=== PATIENT | female | born 1995 | race Caucasian/White ===

== ENCOUNTER 2025-08-02 14:39 | Emergency (ER) | payer OTHER, SELFPAY ==
--- OUTSIDE RECORDS SUMMARY | 2025-06-03 13:45 | XMS_ITS | Encounter Summary ---
Author Organization [place] [address] Care Team Providers Care [employer] Maintenance Worker Name Role Phone Liz Silvestre MD Unavailable [phone] Efe Willard MD Primary Care Provider [phone] Encounter Details Date Type Department Care Team (Latest Contact Info) Description 06/03/2025 1:45 PM EDT - 06/03/2025 11:59 PM EDT Hospital Encounter [facility] [address] [place] [phone] Hyperglycemia; Dizziness; Menopausal syndrome Discharge Disposition: Home or Self Care Social History Tobacco Use Types Packs/Day Years Used Date Smoking Tobacco: Never Smokeless Tobacco: Never Alcohol Use Standard Drinks/Week Comments No 0 (1 standard drink = 0.6 oz pur e alcohol) none with PHQ-2 Answer Date Recorded PHQ-2 Total Score 0 02/09/2024 Sexually Active Control Partners Comments Yes Male Comments No Sex and Gender Information Value Date Recorded Sex Assigned at Not on file Legal Sex Female 8:58 PM EDT Gender Identity Not on file Sexual Orientation Not on file 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 Answer Date of Assessment Author No 02/12/2024 9:43 AM Dale Amador RN * Is the person blind or does he/she have serious difficulty seeing even when wearing glasses? Answer Date of Assessment Author No 02/12/2024 9:43 AM Dale Amador RN * Does this person have serious difficulty walking or climbing stairs? Answer Date of Assessment Author No 02/12/2024 9:43 AM Dale Amador RN * Does this person have difficulty dressing or bathing? Answer Date of Assessment Author No 02/12/2024 9:43 AM Dale Amador RN * Because of a physical, mental or emotional condition, does this person have difficulty doing errands alone such as visiting a doctor's office or shopping? Answer Date of Assessment Author No 02/12/2024 9:43 AM Columba Amador RN documented as of this encounter Mental Status * Because of a physical, mental or emotional condition, does this person have serious difficulty concentrating, remembering or making decisions? Answer Entry Date Author No 02/12/2024 9:43 AM Dale Amador RN documented in this encounter Medications at Time of Discharge escitalopram oxalate (LEXAPRO) 10 mg Oral TabletIndications :Irritability,Gerber or depressive disorder, recurrent episode, mild Take 1 Tablet by mouth daily. 90 Tablet 1 12/09/2024 06/09/2025 documented as of this encounter Discharge Disposition Disposition Code Departure Means Destination Home or Self Care documented in this encounter Plan of Treatment Not on file documented as of this encounter Goals Goal Patient Goal Type Associated Problems Recent Progress Patient-Stated? Author Blood Pressure < 140/90 Blood Pressure 120/80(2023 4:15 PM EST) No Christine Giordano RN Eat better, exercise, reach an ideal body weight General No Joyce Pickens LPN BMI (Calculated) < 30 General 47.2(11/01/20 24 4:15 PM EST) Christine Alcantara RN HEMOGLOBIN A1C < 7.0 Result Component 5.8( 1:45 PM EDT) No Christine Giordano RN documented as of this encounter Procedures Procedure Name Priority Date/Time Associated Diagnosis Comments ESTROGENS, FRACTIONATED BY TMS -REF LAB Routine 06/03/2025 1:45 PM EDT Menopausal syndrome THYROID STIMULATING HORMONE Routine 06/03/2025 1:45 PM EDT Hyperglycemia Dizziness T4, FREE (THYROXINE) Routine 06/03/2025 1:45 PM EDT Hyperglycemia Dizziness HEMOGLOBIN A1C Routine 06/03/2025 1:45 PM EDT Hyperglycemia LUTEINIZING HORMONE Routine 06/03/2025 1 :45 PM EDT Menopausal syndrome FOLLICLE STIMULATING HORMONE LEVEL Routine 06/03/2025 1:45 PM EDT Menopausal syndrome COMPREHENSIVE METABOLIC PANEL Routine 06/03/2025 1:45 PM EDT Hyperglycemia documented in this encounter Results * (ABNORMAL) COMPREHENSIVE METABOLIC PANEL (06/03/2025 1:45 PM EDT) Sodium 137 136 - 145 mmol/L 06/03/2025 7:57 PM EDT [facility] Potassium 4.4 3.5 - 5.0 mmol/L 06/03/2025 7:57 PM EDT [facility] Chloride 103 98 - 107 mmol/L 06/03/2025 7:57 PM EDT [facility] Total CO2 24 22 - 29 mmol/L 06/03/2025 7:57 PM EDT [facility] Anion Gap 10 7 - 16 mmol/L 06/03/2025 7:57 PM EDT [facility] Calcium 9.5 8.6 - 10.4 mg/dL 06/03/2025 7:57 PM EDT [facility] Glucose Lvl 103(H) 70 - 99 mg/dL 06/03/2025 7:57 PM EDT [facility] BUN 16 6 - 20 mg/dL 06/03/2025 7:57 PM EDT [facility] Creatinine 0.72 0.51 - 1.30 mg/dL 06/03/2025 7:57 PM EDT [facility] Albumin 4.2 3.5 - 5.2 gm/dL 06/03/2025 7:57 PM EDT [facility], [facility] Total Protein 7.0 6.4 - 8.3 gm/dL 06/03/2025 7:57 PM EDT [facility] Bili Total 0.8 0.2 - 1.3 mg/dL 06/03/2025 7:57 PM EDT [facility] ALT 27 <=41 U/L 06/03/2025 7:57 PM EDT [facility] AST 23 <=40 U/L 06/03/2025 7:57 PM EDT [facility] Alk Phos 103 36 - 123 U/L 06/03/2025 7:57 PM EDT [facility], [facility] eGFR (CKD-EPIcr 2020) 114 >=60 mL/min/1.7 3 m2 06/03/2025 7:57 PM EDT [facility] Comment:Estimated GFR was ca lculated using the CKD-EPIcr (2020) equation refit without race. The equation is recommended by the National Kidney Foundation - [place] Society of Nephrology Task Force. Blood VENOUS BLOOD / Unknown Venipuncture / Unknown 06/03/2025 1:45 PM EDT 06/03/2025 1:45 PM EDT us Efe Willard MD CHEMISTRY ORDERABLES Final Res ult [facility] [address] [facility] , [address] [place] [id number] * ESTROGENS, FRACTIONATED BY TMS -REF LAB (06/03/2025 1:45 PM EDT) Estradiol 49.4 pg/mL 06/07/2025 4:00 AM EDT [employer] [facility] Comment: REFERENCE INTERVAL: Estradiol by [employer] Care[employer] Instructor For a complete set of all established reference intervals, refer to ltd.ComH[employer]/Tests/Pub/[id number]. This test was developed and its performance characteristics determined by [facility]. It has not been cleared or approved by the US Food and Drug Administration. This test was performed in a CLIA certified laboratory and is intended for clinical purposes. Estrone by 34.6 pg/mL 06/07/2025 4:00 AM EDT [facility] Comment: INTERPRETIVE INFORMATION: Estrone by Health Care[employer] Instructor For a complete set of all established reference intervals, refer to [employer]/Tests/Pub/[id number]. This test was developed and its performance characteristics determined by [facility] [facility] [employer]. It has not been cleared or approved by the US Food and Drug Administration. This test was performed in a CLIA certified laboratory and is intended for clinical purposes. Estrogens Total 84.0 pg/mL 4:00 AM EDT [facility] Comment: Reference interval of estrogens (pg/mL) Estrone Estradiol Total Estrogens Early follicular <150.0 30.0-100.0 30.0-250.0 Late follicular 100.0-250.0 100.0-400.0 200.0-650.0 Luteal <200.0 50.0-150.0 50.0-350.0 Post-menopausal 3.0-32.0 2.0-21.0 5.0-52.0 REFERENCE INTERVAL: Estrogens Total Calculation For a complete set of all established reference intervals, refer to [employer]/Tests/Pub/[id number]. Performed By: [facility] [address] [place] [id number] Hide Sorter: Deshawn Werner MD, PhD CLIA Number: [id number] Blood VENOUS BLOOD / Unknown Venipuncture / Unknown 06/03/2025 1:45 PM EDT 06/03/2025 1:45 PM EDT us Efe Willard MD CHEMISTRY ORDERABLES Final Res ult [facility] [address] [place], [place] [id number] * FOLLICLE STIMULATING HORMONE LEVEL (06/03/2025 1:45 PM EDT) FSH 5.22 mIU/mL 06/03/2025 7:58 PM EDT [employer] Comment: Suggested Reference Range (mIU/mL) Females Follicular Phase 3.5 - 12.5 Ovulation Phase 4.7 - 21.5 Luteal Phase 1.7 - 7.7 Postmenopause 25.8 - 134.8 Males 1.5 - 12.4 Blood VENOUS BLOOD / Unknown Venipuncture / Unknown 06/03/2025 1:45 PM EDT 06/03/2025 1:45 PM EDT Narrative [facility] [employer] [facility] - 06/03/2025 7:58 PM EDT Ingestion of alanna doses of biotin (>5 mg/day) taken within 8 hours of drawing blood sample can interfere with this immunoassay test. Efe Willard MD CHEMISTRY ORDERABLES Final Res ult Performing Organization Address [facility] Co de Phone Number [facility] [employer] [address] , [place] [address] * LUTEINIZING HORMONE (06/03/2025 1:45 PM EDT) Pathologist [facility] LH 3.40 mIU/mL 06/03/2025 7:58 PM EDT [facility] [employer] [facility] Comment: Suggested Reference Ranges (mIU/mL) Females Follicular Phase 2.4 - 12.6 Ovulation Phase 14.0 - 95.6 Luteal Phase 1.0 - 11.4 Postmenopause 7.7 - 58.5 Males 1.7 - 8.6 Blood VENOUS BLOOD / Unknown Venipuncture / Unknown 06/03/2025 1:45 PM EDT 06/03/2025 1:45 PM EDT Narrative [facility] [employer] [facility] - 06/03/2025 7:58 PM EDT Ingestion of alanna doses of biotin (>5 mg/day) taken within 8 hours of drawing blood sample can interfere with this immunoassay test. Efe Willard MD CHEMISTRY ORDERABLES Final Res ult Performing Organization Address [facility] de Phone Number [facility] [employer] , [place] [address] * T4, FREE (THYROXINE) (06/03/2025 1:45 PM EDT) Free T4 1.09 0.80 - 1.80 ng/dL 06/03/2025 7:57 PM EDT [facility] Blood VENOUS BLOOD / Unknown Venipuncture / Unknown 06/03/2025 1:45 PM EDT 06/03/2025 1:45 PM EDT Narrative [facility] [employer] [facility] - 06/03/2025 7:57 PM EDT Ingestion of alanna doses of biotin (>5 mg/day) taken within 8 hours of drawing blood sample can interfere with this immunoassay test. Efe Willard MD CHEMISTRY ORDERABLES Final Res ult Performing Organization Address [facility] de Phone Number [facility] [employer] [address] , [place] [address] * THYROID STIMULATING HORMONE (06/03/2025 1:45 PM EDT) [facility] TSH 1.460 0.270 - 4.200 mcIU/mL 06/03/2025 7:57 PM ED[address] [facility] [employer] [facility] Blood VENOUS BLOOD / Unknown Venipuncture / Unknown 06/03/2025 1:45 PM EDT 06/03/2025 1:45 PM EDT Narrative [facility] [employer] [facility] - 06/03/2025 7:57 PM EDT Ingestion of alanna doses of biotin (>5 mg/day) taken within 8 hours of drawing blood sample can interfere with this immunoassay test. Efe Willard MD CHEMISTRY ORDERABLES Final Res ult Performing Organization Address [facility] Co de Phone Number [facility] [employer] , [place] [address] * (ABNORMAL) HEMOGLOBIN A1C (06/03/2025 1:45 PM EDT) [facility] Hgb A1C 5.8(H) 4.2 - 5.6 % 06/03/2025 7:[address] [facility] [employer] [facility] Est. Avg Glucose 120 mg/dL 06/03/2025 7:[address] [facility] [employer] Blood VENOUS BLOOD / Unknown Venipuncture / Unknown 06/03/2025 1:45 PM EDT 06/03/2025 1:45 PM EDT Narrative [facility] [employer] - 06/03/2025 7:22 PM EDT REFERENCE RANGE: Normal: 4.0-5.6% Pre-diabetes: 5.7-6.4% Provisional diagnosis of diabetes: >6.4% Hgb F>10% and anything which shortens red cell survival, such as hemolytic anemia, or unstable hemoglobin variants such as HbSS, HbSC, or HbCC, will lower the HbA1c value associated with a given level of glycemic control. us Efe Willard MD CHEMISTRY ORDERABLES Final Res ult [employer] [address] [facility], [address] [place] [id number] documented in this encounter Visit Diagnoses Diagnosis Hyperglycemia Other abnormal glucose Dizziness Dizziness and giddiness Menopausal syndrome Symptomatic menopausal or female climacteric states documented in this encounter Care Teams [employer] Maintenance Worker Relationship Specialty Start Date End Date Efe Willard MD [facility] [phone] PCP - General Internal Medicine 02/21/19 Liz Silvestre MD [address] [facility] [address] [place] [address] [employer] Installer Family Medicine 07/13/17 documented as of this encounter
--- NOTE | 2025-08-02 14:48 | XR_ITS ---
PROCEDURE INFORMATION: Exam: XR Left Ankle Exam date and time: 08/02/2025 2:49 PM Age: 30 years old Clinical indication: Pain; Ankle; Bilateral; Additional info: Left ankle pain, rolled ankle TECHNIQUE: Imaging protocol: Radiologic exam of the left ankle. Views: 3 or more views. COMPARISON: No relevant prior studies available. FINDINGS: Bones/joints: Normal. Soft tissues: Normal. IMPRESSION: No acute findings.
--- NOTE | 2025-08-02 14:49 | HMH.EDGENADL ---
Discharge Plan Disposition Patient Disposition: Home, Self-Care Condition: Good Referrals Follow up/Referrals: Gui Roland DO [Staff Physician, Orthopedics] - See instructions Provider,Referral, [Referring, Medical] - See instructions Activity Restrictions/Add. Instructions Additional Instructions/Restrictions: Please take Tylenol and ibuprofen at home as needed for pain. Please keep ankle wrapped and use crutches as needed for pain. Please ice daily. Please elevate daily. Please follow-up with orthopedic surgery. Clinical Impressions Clinical Impression: Ankle sprain and strain Instructions Patient Instructions: DI for Ankle Sprain Print Language Print Language: Chilean Discharge ED Provider: Max Hyde JR General Adult HPI General Chief complaint: Extremity Injury, Lower Stated complaint: AO @ 1300 08/02/25 Left Ankle, Pain, Swelling Time Seen by Provider: 08/02/25 14:44 Mode of Arrival: Ambulatory Source of Information: Patient Limitations: No Limitations History of Present Illness HPI narrative: This is a 30-year-old female with unremarkable past medical history, no medications, no allergies, no blood thinners, presenting an hour after rolling her left ankle while walking and accidentally walking into a ditch. Patient did not fall or hit her head. Patient complains of left ankle pain and swelling. Able to ambulate with difficulty afterwards. Did not hit her head or lose consciousness. No other complaints or injuries noted. No further complaints this time. Severity: mild Quality: aching Consistency: constant Relieving factors: rest Treatments prior to arrival: NSAID Related Data Allergies Allergy/AdvReac Type Severity Reaction Status Date / Time amoxicillin Allergy Rash Verified 08/02/25 14:56 [facility] Disclaimer: The information contained in this section may have been updated after the patient was seen, as this information can be updated by other users. Social History Smoking Status: Never smoker alcohol intake: never current occupational status: employed Travel in the last 8 weeks?: None ROS Obtained: Yes All systems reviewed & no additional complaints except as documented Constitutional Constitutional: Reports system reviewed and no additional complaints, except as documented Eyes Eyes: Reports system reviewed and no additional complaints, except as documented ENT Ears, Nose, Mouth, and Throat: Reports system reviewed and no additional complaints, except as documented Cardiovascular Cardiovascular: Reports system reviewed and no additional complaints, except as documented Respiratory Respiratory: Reports system reviewed and no additional complaints, except as documented Gastrointestinal Gastrointestingal: Reports system reviewed and no additional complaints, except as documented Genitourinary Female Genitourinary: Reports system reviewed and no additional complaints, except as documented Musculoskeletal Musculoskeletal: Reports as per HPI (Tenderness to palpation to left lateral malleolus) and Reports other (Decreased range of motion secondary to pain and swelling to left ankle) Neurologic Neurologic: Reports system reviewed and no additional complaints, except as documented Physical Exam General General appearance: alert and in no apparent distress Head Head exam: atraumatic and normocephalic Eye Eye exam: Present normal appearance and PERRL ENT ENT exam: Present normal exam Neck Neck exam: Present normal inspection Chest Chest inspection: Present normal inspection Respiratory Respiratory exam: Present normal lung sounds bilaterally Cardiovascular Cardiovascular exam: Present regular rate Abdominal Exam Abdominal exam: Present soft Extremities Exam Extremities exam: Present tenderness, edema and other (Left lateral malleolus tenderness, swelling, decreased range of motion to left ankle) Back Exam Back exam: Present normal inspection Neurological Exam Neurological exam: Present alert and oriented X3 Medical Decision Making Medical Records Screening: Per USPSTF and CDC recommendations, given the prevalence of disease in our region, it is our hospital?s policy to screen for HIV and viral Hepatitis for all patients aged 18 and over and those with ongoing risk factors. Zachary Inquiry Pt receiving controlled substance: No Vital Signs: 08/02/25 14:52 Temperature 98 F Temperature Source Oral Pulse Rate [Right Brachial] 83 Respiratory Rate 16 Blood Pressure [Right Arm] 144/95 H Blood Pressure Mean [Right Arm] 111 Blood Pressure Source [Right Arm] Automatic Cuff Blood Pressure Position [Right Arm] Sitting 02 Sat by Pulse Oximetry 97 Oxygen Delivery Method Room Air Orders (Tests/Meds): ED MEDICATIONS Discontinued Medications Generic Name Dose Route Start Last Admin Trade Name Freq PRN Reason Stop Dose Admin Acetaminophen 1,000 mg 08/02/25 14:48 08/02/25 15:12 Acetaminophen 500mg Tab PO 08/02/25 14:49 1,000 mg ONCE ONE Administration ORDERS Category Date Time Status XR ankle LT min 3V Stat Exams 08/02/25 14:48 Taken Medical Decision Narrative: 30-year-old female presenting for left ankle injury. No medical history. No blood thinners. Initial differential includes ankle sprain versus tibia fracture versus fibular fracture versus foot fracture. We will order x-ray to further evaluate. Already took ibuprofen. We will order Tylenol for pain. Left ankle x-ray reviewed and independent interpreted, significant for no acute fracture or dislocation. Please see radiology report for further details. Will send patient home with [place] wrap, crutches and referral to orthopedic surgery/sports medicine. Will instruct patient to take Tylenol and ibuprofen at home as needed for pain. Patient has remained afebrile, hemodynamically stable, in no acute distress throughout the course of ED stay. Critical Care Critical Care Time Critical Care Time: No
[2025-08-02 14:52] VITALS: BP 144/95; PULSE 83; RESP 16; TEMP 36.6; O2SAT 97; BMI 43.0
[2025-08-02] MEDS: ACETAMINOPHEN 500MG TAB 1000 MG PO (15:12)
--- OUTSIDE RECORDS SUMMARY | 2025-08-02 15:29 | XMS_ITS | Encounter Summary ---
Author Organization [facility] Address [address] [place] [address] Care Team Providers Care Stone Trimmer Name Role Phone Cathleen Gloria MD Primary Care Provider [phone] Reason for Visit * Reason Onset Date Comments Results 10/18/2015 Increasing beta HCGs - reassuring Encounter Details Date Type Department Care Team (Late st Contact Info) Description 10/18/2015 Telephone [facility] Physicians - Primary Care, [facility] [address] [place] [address] Karina Cortez, [employer] [employer], [facility] [address] [facility] [address] [place] [address] Results (Increasing beta HCGs - reassuring) Social History Tobacco Use Types Packs/Day Years Used Date Smoking Tobacco: Never Alcohol Use Standard Drinks/Week Comments Not Asked 0 (1 standard drink = 0.6 oz pur e alcohol) Comments Yes Sex and Gender Information Value Date Recorded Sex Assigned at Not on file Legal Sex Female 10:41 AM EDT Gender Identity Not on file Sexual Orientation Not on file documented as of this encounter Miscellaneous Notes * Telephone Encounter - Sakina Farnsworth - 10/19/2015 11:19 AM EST Notified pt. * Telephone Encounter - Karina Cortez - 10/18/2015 8:58 PM EST Please call pt - her hormone levels (HCG) continue to improve normally. Very reassuring. I will see her this week for an ultrasound. documented in this encounter Plan of Treatment Not on file documented as of this encounter Visit Diagnoses Not on filedocumented in this encounter Care Teams Stone Trimmer Relationship Specialty Start Date End Date Cathleen Gloria MD [address] [place] [address] [place] [phone] PCP - General Internal Medicine 10/13/15 documented as of this encounter
--- OUTSIDE RECORDS SUMMARY | 2025-08-02 15:29 | XMS_ITS | Encounter Summary ---
Author Organization [place] [address] Care Team Providers Care Charge Gang Weigher Name Role Phone Liz Silvestre MD Unavailable [phone] Efe Willard MD Primary Care Provider [phone] Encounter Details Date Type Department Care Team (Late st Contact Info) Description 06/09/2025 Results Follow-Up SEP Barb SOW [address] [place] [phone] Efe Willard MD [address] [place] [phone] HEMOGLOBIN A1C, THYROID STIMULATING HORMONE, T4, FREE (THYROXINE), Additional followed-up results: 4 Social History Tobacco Use Types Packs/Day Years [...] 02/12/2024 9:43 AM Dale Amador RN documented as of this encounter Mental Status * Because of a physical, mental or emotional condition, does this person have serious difficulty concentrating, remembering or making decisions? Answer Entry Date Author No 02/12/2024 9:43 AM Dale Amador RN documented in this encounter Progress Notes * Efe Willard MD - 06/09/2025 12:43 PM EDT Estrogen levels normal. documented in this encounter Plan of Treatment Not on file documented as of this encounter Goals Goal Patient Goal Type Associated Problems Recent Progress Patient-Stated? Author Blood Pressure < 140/90 Blood Pressure 120/80(2023 4:15 PM EST) No Christine Giordano, SARAH Eat better, exercise, reach an ideal body weight General No Joyce Pickens LPN BMI (Calculated) < 30 General 47.2(11/01/20 4:15 PM EST) No Christine Giordano, SARAH HEMOGLOBIN A1C < 7.0 Result Component 5.8( 1:45 PM EDT) Christine Alcantara, RN documented as of this encounter Visit Diagnoses Not on filedocumented in this encounter Care Teams Charge Gang Weigher Relationship Specialty Start Date End Date Efe Willard MD [address] [place] [address] [place] [address] PCP - General Internal Medicine 02/21/19 Liz Silvestre MD [address] [place] [phone] [facility] Family Medicine 07/13/17 documented as of this encounter
--- OUTSIDE RECORDS SUMMARY | 2025-08-02 15:29 | XMS_ITS | Encounter Summary ---
Author Organization [facility] Address [address] [place] [address] Care Team Providers Care Comfort Advisor Name Role Phone Cathleen Gloria MD Primary Care Provider [phone] Reason for Visit * Reason Onset Date Comments Scheduling 06/11/2016 Need for appoint ment s/p , uncomplicated, 9ln 9 oz male . Encounter Details Date Type Department Care Team (Late st Contact Info) Description 06/11/2016 Telephone Labor and Delivery [address] [place] [address] [id number] Karina Cortez, [place] [address] [facility] [address] [place] [address] Scheduling (Need for appointment s/p , uncomplicated, 9ln 9 oz male . ) Social History Tobacco Use Types Packs/Day Years [...] on file documented as of this encounter Functional Status * Are you blind or do you have difficulty seeing, even when wearing glasses? Answer Date of Assessment Author No 06/10/2016 5:56 AM EDT Botello RN * Do you have serious difficulty walking or climbing stairs? Answer Date of Assessment Author No 06/10/2016 5:56 AM EDT Botello RN * Do you have difficulty dressing or bathing? Answer Date of Assessment Author No 06/10/2016 5:56 AM ANA LILIAT Botello RN * Because of a physical, mental, or emotional condition, do you have difficulty doing errands alone such as a visiting a doctor's office or shopping? Answer Date of Assessment Author No 06/10/2016 5:56 AM ANA LILIAT Botello RN documented as of this encounter Mental Status * Because of a physical, mental, or emotional condition, do you have serious difficulty concentrating, remembering, or making decisions? Answer Entry Date Author No 06/10/2016 5:56 AM Gerrado RN documented in this encounter Miscellaneous Notes * Telephone Encounter - Karina Cortez - 06/11/2016 2:17 PM EDT Please contact pt to schedule her 6 weeks post- appointment with me. Of note, she also needs to schedule a circumcision in about 1 week (less is OK) with Dr Rivas or someone in procedure clinic. Thank you! documented in this encounter Plan of Treatment Not on file documented as of this encounter Visit Diagnoses Not on filedocumented in this encounter Care Teams Comfort Advisor Relationship Specialty Start Date End Date Cathleen Gloria MD [address] [place] [address] J[place] EL[place]AB[place] [phone] PCP - General Internal Medicine 10/13/15 documented as of this encounter
--- OUTSIDE RECORDS SUMMARY | 2025-08-02 15:29 | XMS_ITS | Clinical Summary ---
Author Organization [facility] Address [address] [place] [id number] Care Team Providers Care Tourist Agent Name Role Phone Cathleen Gloria MD Primary Care Provider [phone] Allergies No known active allergies Medications VIT/IRON FUMARATE/FA ( PO) Take by mouth. A ctive Cholecalciferol , Vitamin D3, (VITAMIN D) 1,000 unit Capsule Take 1 Cap by mouth daily. 30 Cap 2 5 Active ibuprofen (MOTRIN) 600 mg tablet Take 1 Tab by mouth every 6 hours. 60 Tab 0 6 Active oxyCODONE-aceta minophen (PERCOCET) 5-325 mg per tablet Take 1-2 Tabs by mouth every 4 hours as needed. 30 Tab 0 6 Active Additional Information Patient not taking.Reported on 06/13/2016 [place] Corrigan (MYRTLECKS) 50 % Pads, Medicated Apply to perineum 4 times daily 0 6 Active ferrous sulfate 325 mg (65 mg iron) EC tablet Take 1 Tab by mouth 2 times daily. 60 Tab 1 6 Active Active Problems Problem Noted Date Diagnosed Date Iron deficiency anemia 06/11/2016 Overview (06/11/2016): Hgb 9. at admit to hospital with . High iron diet and begin ferrous sulfate 325 mg BID until PP check up. 06/10/2016 Obesity affecting in third trimester, antepartum 04/17/2016 Overview (06/08/2016): Pregravid BMI was 36. Precautions discussed with pt for FM, HTN. Given BMI of 40 at last visit was scheduled to start NST/KRISSY. First done 06/01/2016. NST reassuring. KRISSY with fluid >10. Will repeat in 1 week 06/08/2016: NST reassuring. KRISSY History of hemorr gregoria, currently , third trimester 04/06/2016 Overview (06/08/2016): G1 - PP hemorh. Hgb about 5 - 2 units transfused. G 2 - no problems. 06/08/2016 Is ok with blood transfusion if needed Overweight 02/24/2016 Overview (02/24/2016): See other problem notes- pt counseled on nutritino, wt gain in preg. If BMI exceeds 40, consider weekly AP surveillance. Maternal varicella, non-immune 12/28/2015 History of shoulder dystocia in prior , currently , third trimester 12/16/2015 Overview (06/08/2016): IOL, mild shoulders ( a few seconds ) Hx PPHx - transfused with 2 units blood. G2 had no complications, IOL slowly elevating BPs. . Discussed stats on low but possible risk of recurrence, wt gain, nutrition, low glycemic foods, exercise. 8/9 . No involvement of brachial nerve or any injury. Discussed with Dr Hernández - no need for consult with him. 06/08/2016: discussed with patient. Plan for IOL at 41+4 Records reviewed from [facility] : Provider Progress Note - Erna Méndez MD - 11/06/2012 9:40 PM EST Delivery Note over RML Loose nuchal and L shoulder requiring suprapubic 8#12 oz 7/9 apgars Placenta spon and intact Uterine exp negative Repair with 2-0 and 3-0 vicryl EBL 600cc Vitamin D insufficiency 11/23/2015 Overview (03/16/2016): Start 1,000 units'day supplemental capsule of Vit D. Re-check level end of Nov 2015 to mid-dec 2015 - rechecked on 03/16/16 Supervision of other normal , antepartu m 11/18/2015 Overview (06/08/2016): First visit 6 weeks. LMP 08-24-15. LORIN 05-30-2016 Hx shoulders and PPH as G1. No prob G2. Desires unmedicated and to avoid IOL if possible. Declines PP contraceptions - discussed 04-06-16. Taking [facility] classes Sisters are now OB pt's with Fam [facility] as well. Refuses vaccines. Declined all aneuploidy screening after counseling. US done 12/25, normal anatomy, male, anterior placenta, normal CL 06/01/2016- continues to prefer avoiding induction if possible. Declined cervical check 06/08/2016- cervical check 3/thick/floating with striping membranes. Plan for IOL on 06/10/16 AT 5am. Baby boy William To [facility] Wants circumcision for son at 8 days of life Optic neuritis 11/18/2015 Overview (11/18/2015): Referred to [facility]. Has appt Oct 2015. Resolved Problems Problem Noted Date Diagnosed Date Resolved Date Optic neuritis 12/04/2015 06/11/2016 Threatened in early 10/23/2015 02/24/2016 Overview (10/23/2015): Spotting, cramping at 6 weeks - QHCG not doubled, interval HCG rising and normal 8 weeks U/S scan. Social History Tobacco Use Types Packs/Day Years Used Date Smoking Tobacco: Never Tobacco Cessation:Counseling Given: Yes Alcohol Use Standard Drinks/Week Comments No 0 (1 standard drink = 0.6 oz pur e alcohol) Comments No Sex and Gender Information Value Date Recorded Sex Assigned at Not on file Legal Sex Female 10:41 AM EDT Gender Identity Not on file Sexual Orientation Not on file Last Filed Vital Signs Vital Sign Reading Time Taken Comments Blood Pressure 112/76 06/13/2016 11:10 AM EDT Pulse 92 06/13/2016 11:10 AM EDT Temperature 36.8 C (98.2 F) 06/13/2016 11:10 AM EDT Respiratory Rate 12 06/13/2016 11:10 AM EDT Oxygen Saturation 98% 06/13/2016 11:10 AM EDT Inhaled Oxygen Concentration - - Weight 99.3 kg (219 lb) 06/13/2016 11:10 AM EDT Height 160 cm (5' 3 ) 06/10/2016 5:48 AM EDT Body Mass Index 38.79 06/10/2016 5:48 AM EDT Plan of Treatment Health Maintenance Due Date Last Done Comments Tetanus Vaccination (Every 1 0 Years) 2011 Lipid Screening 2013 Cervical Cancer Screening 2014 Depression Screening 11/27/2024 COVID-19 Vaccine (2023-2 5 season) 2025 Influenza Vaccination (#1) 2025 HPV Vaccine Aged Out No longer eligi ble based on patient's age to complete this topic Insurance [employer] Advance Directives For more information, please contact: [phone] * Full Code (Latest Code Status on File) Date Activated Date Inactivated Comments 06/10/2016 5:47 PM 06/11/2016 10:17 PM * Full Code Date Activated Date Inactivated Comments 06/10/2016 8:47 AM 06/10/2016 5:47 PM * Full Code Date Activated Date Inactivated Comments 06/10/2016 6:31 AM 06/10/2016 8:47 AM Care Teams Tourist Agent Relationship Specialty Start Date End Date Cathleen Gloria MD [address] [place] [address] ELIZABETH WEBB [phone] PCP - General Internal Medicine 10/13/15
--- OUTSIDE RECORDS SUMMARY | 2025-08-02 15:29 | XMS_ITS | Clinical Summary ---
Author Organization [facility] Address [address] [place] [address] Phone Care Team Providers Care Sociology Teacher Name Role Phone Liz Silvestre MD Unavailable [phone] Efe Willard MD Primary Care Provider [phone] Allergies Active Allergy Reactions Criticality Noted Date Comments Amoxicillin Rash 02/24/2017 Medications metoprolol (LOPRESSOR) 50 mg Oral TabletIndications :Essential hypertension Take 1 Tablet by mouth daily for 180 days. 90 Tablet 1 11/01/2024 Active escitalopram oxalate (LEXAPRO) 10 mg Oral TabletIndications :Irritability,Gerber or depressive disorder, recurrent episode, mild TAKE 1 TABLET BY MOUTH DAILY 30 Tablet 06/09/2025 Active Active Problems Problem Noted Date Diagnosed Date S/P primary low transverse 02/10/2024 HTN in , chronic 01/11/2024 Obesity, Class III, BMI 40-49.9 (morbid obesity) 01/04/2022 Overview (01/04/2022): Wt Readings from Last 3 Encounters: 01/04/22 248 lb (112.5 kg) 09/30/21 248 lb (112.5 kg) 09/16/21 248 lb 12.8 oz (112.9 kg) Diet/exercise. Snorings 01/04/2022 Assessment & Plan (01/04/2022 12:27 PM EST): Possible SABAS Has tonsillar hypertrophy - recommend seeing ENT first about tonsils Work on weight loss. Tonsillar hypertrophy 01/04/2022 Irritability 09/16/2021 Iron deficiency anemia 06/11/2016 Overview (07/04/2024): Overview: Hgb 9. at admit to hospital with . High iron diet and begin ferrous sulfate 325 mg BID until PP check up. 06/10/2016 Obesity affecting in third trimester, antepartum 04/17/2016 Overview (07/04/2024): Overview: Pregravid BMI was 36. Precautions discussed with pt for FM, HTN. Given BMI of 40 at last visit was scheduled to start NST/KRISSY. First done 06/01/2016. NST reassuring. KRISSY with fluid >10. Will repeat in 1 week 06/08/2016: NST reassuring. KRISSY History of hemorr gregoria, currently , third trimester 04/06/2016 Overview (07/04/2024): Overview: G1 - PP hemorh. Hgb about 5 - 2 units transfused. G 2 - no problems. 06/08/2016 Is ok with blood transfusion if needed Overweight 02/24/2016 Overview (07/04/2024): Overview: See other problem notes- pt counseled on nutritino, wt gain in preg. If BMI exceeds 40, consider weekly AP surveillance. Maternal varicella, non-immune 12/28/2015 History of shoulder dystocia in prior , currently , third trimester 12/16/2015 Overview (07/04/2024): Overview: IOL, mild shoulders ( a few seconds [...] for IOL at 41+4 Records reviewed from Es : Provider Progress Note - Erna Méndez MD - 11/06/2012 9:40 PM EST Delivery Note over RML Loose nuchal and L shoulder requiring suprapubic 8#12 oz 7/9 apgars Placenta spon and intact Uterine exp negative Repair with 2-0 and 3-0 vicryl EBL 600cc Vitamin D insufficiency 11/23/2015 Overview (07/04/2024): Overview: Start 1,000 units'day supplemental capsule of Vit D. Re-check level end of Nov 2015 to mid-dec 2015 - rechecked on 03/16/16 Optic neuritis 11/18/2015 Overview (07/04/2024): Overview: Referred to [facility]. Has appt Oct 2015. Resolved Problems Problem Noted Date Diagnosed Date Resolved Date 37 weeks gestation of 02/10/2024 02/28/2024 Breech presentation 02/10/2024 02/28/20 24 Nuchal cord, fetus 1 02/10/2024 024 examination or rosemary t, positive result 11/02/2023 02/28/2024 Encounter for supervision of normal , antepartum 08/22/2023 02/28/2024 Overview (08/22/2023): L=8w6d US PNL wnl Failed early GCT, GTT P Grand multiparity 08/22/2023 02/28/2024 Elevated BP without diagnosis of hypertension 01/07/20 21 01/04/2022 Encounter for induction of labor 11/30/2020 01/07/2021 Anemia during in third trimester 11/30/2020 01/07/2021 Group B Streptococcus carmelina r, +RV culture, currently 11/16/2020 01/07/2021 COVID-19 affecting in third trimester 10/14/2020 01/07/2021 Elevated blood pressure reading 02/21/2019 01/07/2021 Assessment & Plan (02/21/2019 10:19 AM EDT): She is reluctant to get the echo at this time secondary to insurance issues. She has very poor insurance with coverage that leads to high deductible. At this point she is monitoring her blood pressure at home 2-3 times per month and it has been running in the 120s-130s systolic. We will continue to monitor for now without any additional testing. Advised her that she has any readings with a systolic above 140 she needs to call us. Normal labor 03/03/2018 01/07/2021 Anemia during 02/08/201803/27 39 weeks gestation of 02/06/2018 01/07/2021 Hx gestational diabetes 11/08/201706/2024 Overview (08/23/2023): Failed early GCT --> 3hr wnl Needs repeat 3hr or QID FSBS in third trimester Anemia complicating 04/05/2017 04/13/2017 Supervision of normal 03/30/2017 04/13/2017 High-risk 01/04/20 22 examination or rosemary t, positive result 01/04/2022 Obesity in 024 Gestational diabetes mellitu s (GDM) controlled on oral hypoglycemic drug, antepartum 201702/06/2018 Encounters Date Type Department Care Team Description 06/09/2025 Results Follow-Up [facility] [address] [place] [address] Efe Willard MD HEMOGLOBIN A1C, THYROID STIMULATING HORMONE, T4, FREE (THYROXINE), Additional followed-up results: 4 06/07/2025 Refill [facility] [address] [place] [address] Efe Willard MD Medication Refill; Central Patient Navigator Outreach (Med Refills 30/) 06/03/2025 1:45 PM EDT - 06/03/2025 11:59 PM EDT Hospital Encounter [facility] [place] [address] [place] [id number] Hyperglycemia; Dizziness; Menopausal syndrome Discharge Disposition: Home or Self Care from Last 3 Months Surgical History Surgery Date Site/Laterality Comments DILATION AND CURETTAGE OF UTERUS 06/25/2013 N/A DILATION & CURETTAGE SUCTION EVACUATION FOR MISCARRIAGE; Surgeon: Gilbert Gonzalez MD; Location: [facility]; Service: Gynecology SECTION 02/10/2024 Abdomen primary section with low transverse uterine incision at 0215; Surgeon: Liz Silvestre MD; Location: [facility]; Service: Gynecology Medical History Medical History Date Comments Encounter for blood transfusion 11/07/2012 Anemia past hx History of miscarriage 2012 & Hypertension PIH 2023 pregnan cy Heartburn with Family History Medical History Relation Name Comments No Known Problems Daughter 1 No Known Problems Daughter 2 High Blood Pressure Father Cancer Maternal Grandfather Arthritis Maternal Grandmother Diabetes Maternal Grandmother No Known Problems Mother No Known Problems Paternal Grandfather Glaucoma Paternal Grandmother No Known Problems Sister 1 No Known Problems Sister 2 No Known Problems Sister 3 No Known Problems Son 1 No Known Problems Son 2 No Known Problems Son 3 Relation Name Status Comments Daughter 1 Alive Daughter 2 Alive Father Alive Maternal Grandfather Maternal Grandmother Alive Mother Alive Paternal Grandfather Paternal Grandmother Sister 1 Alive Sister 2 Alive Sister 3 Alive Son 1 Alive Son 2 Alive Son 3 Alive Social History Tobacco Use Types Packs/Day Years Used Date Smoking Tobacco: Never Smokeless Tobacco: Never Tobacco Cessation:Counseling Given: Not Answered Alcohol Use Standard Drinks/Week Comments No 0 [...] Not on file Not on f ile Obstetrics History Para Term AB IAB SAB Ectopic Multiple Livin g Live Births 8 6 6 0 2 0 1 0 0 6 6 Date Outcome GA Total Labor Labor/2nd/3rd Weight Sex Type Anes PTL Ayana A1 A5 Name Clin 2011 Term 40w 1d 8 lb 12 oz (3.969 kg) F Vag-S pont Epidur al N Livin g [address],[place] GIRL A Ken Culver MD Delivery Location:[facility] 2012 SAB 10w 0d Delivery Location:d&c 2013 Term 40w 0d 8 lb 5.5 oz (3.785 kg) M Vag-S pont Epidur al N Livin g [address],[place] BABY A Jarod Reyna MD Delivery Location:[facility] 2015 Term 41w 4d 9 lb 9 oz (4.338 kg) M Vag-S pont None N Livin g Delivery Location:[facility] 2017 AB 2017 Term 39w 3d 0h 05m 0h 05m 7 lb 12.9 oz (3.54 kg) F Vag-S pont Epidur al N Livin g 8 8 [facility],[place] BABY [facility] Complications:Gestational di abetes Delivery Location:[facility] ([facility] 2020 Term 39w 1d 0h 05m 0h 05m 7 lb 10.4 oz (3.47 kg) M Vag-S pont Epidur al N Livin g 8 9 [facility],[place] BABY [facility] Complications:Obesity,Histor y of COVID-19,GBS (group B Streptococcus carrier), +RV culture, currently Delivery Location:[facility] ([facility]) 2023 Term 37w 2d 0h 01m 0h 01m 6 lb 14.8 oz (3.14 kg) F CSP Epidur al N Livin g [address] [facility] Complications:Chronic hypert ension,Breech delivery,S/P primary low transverse Delivery Location:[facility] ([facility]) Last Filed Vital Signs Vital Sign Reading Time Taken Comments Blood Pressure 120/80 11/01/2024 4:15 PM EST Pulse 68 11/01/2024 4:15 PM EST Temperature 36.4 C (97.6 F) 11/01/2024 4:15 PM EST Respiratory Rate 20 11/01/2024 4:15 PM EST Oxygen Saturation 98% 11/01/2024 4:15 PM EST Inhaled Oxygen Concentration - - Weight 120.7 kg (266 lb) 11/01/2024 4:15 PM EST Height 160 cm (5' 3 ) 11/01/2024 4:15 PM EST Body Mass Index 47.12 11/01/2024 4:15 PM EST Plan of Treatment Health Maintenance Due Date Last Done Comments Annual Wellness Exam 1996 DTaP/TDaP/Td (1 - Tdap) 2012 Hepatitis B Vaccine (1 of 3 - 19+ 3-dose series) 2012 Pap Smear 05/21/2023 05/21/2020, 03/30/2017, 11/11/2014 Cervical Cancer Screening 2023 HPV/Pap Cotest 2023 COVID-19 Vaccine ( - 2023-2 5 season) 2025 Influenza Vaccine (#1) 2025 5 (Declined) Diabetic Eye Exam Discontinued 01/27/2024 Meningococcal B Vaccine Aged Out No l onger eligible based on patient's age to complete this topic Pneumococcal Vaccine 0-49 Aged Out No longer eligible based on patient's age to complete this topic Goals Goal Patient Goal Type Associated Problems Recent Progress Patient-Stated? Author Blood Pressure < 140/90 Blood Pressure 120/80(2023 4:15 PM EST) No Christine Giordano RN Eat better, exercise, reach an ideal body weight General No Joyce Pickens LPN BMI (Calculated) < 30 General 47.2(11/01/20 4:15 PM EST) No Christine Giordano, SARAH HEMOGLOBIN A1C < 7.0 Result Component 5.8( 1:45 PM EDT) No Christine Giordano, integration technician Procedure Name Priority Date/Time Associated Diagnosis Comments COMPREHENSIVE METABOLIC PANEL Routine 06/03/2025 1:45 PM EDT Hyperglycemia ESTROGENS, FRACTIONATED BY TMS -REF LAB Routine 06/03/2025 1:45 PM EDT Menopausal syndrome FOLLICLE STIMULATING HORMONE LEVEL Routine 06/03/2025 1:45 PM EDT Menopausal syndrome LUTEINIZING HORMONE Routine 06/03/2025 1 :45 PM EDT Menopausal syndrome T4, FREE (THYROXINE) Routine 06/03/2025 1:45 PM EDT Hyperglycemia Dizziness THYROID STIMULATING HORMONE Routine 06/03/2025 1:45 PM EDT Hyperglycemia Dizziness HEMOGLOBIN A1C Routine 06/03/2025 1:45 PM EDT Hyperglycemia HM DIABETES EYE EXAM Routine 01/27/2024 10:02 AM EST CRIMPING PRESS OPERATOR CYTOLOGY REQUEST (PAP ONLY) Routine 05/21/2020 8:52 AM EDT examination or test, positive result from Last 3 Months or Most Recently Relevant to Health Maintenance Results * ESTROGENS, FRACTIONATED BY TMS -REF LAB (06/03/2025 1:45 PM EDT) Estradiol 49.4 pg/mL 06/07/2025 4:00 AM EDT [facility] Comment: REFERENCE INTERVAL: Estradiol by Sample Finisher For a complete set of all established reference intervals, refer to [facility]/Tests/Pub/[id number]. This test was developed and its performance characteristics determined by [facility]. It has not been cleared or approved by the US Food and Drug Administration. This test was performed in a CLIA certified laboratory and is intended for clinical purposes. Estrone by 34.6 pg/mL 06/07/2025 4:00 AM EDT [employer] [facility] Comment: INTERPRETIVE INFORMATION: Estrone by Sample Finisher For a complete set of all established reference intervals, refer to [employer]/Tests/Pub/[id number]. This test was developed and its performance characteristics determined by [facility]. It has not been cleared or approved by the US Food and Drug Administration. This test was performed in a CLIA certified laboratory and is intended for clinical purposes. Estrogens Total 84.0 pg/mL 4:00 AM EDT [facility] Comment: Reference interval of estrogens (pg/mL) Estrone Estradiol Total Estrogens Early follicular <150.0 30.0-100.0 30.0-250.0 Late follicular 100.0-250.0 100.0-400.0 200.0-650.0 Luteal <200.0 50.0-150.0 50.0-350.0 Post-menopausal 3.0-32.0 2.0-21.0 5.0-52.0 REFERENCE INTERVAL: Estrogens Total Calculation For a complete set of all established reference intervals, refer to [employer]/Tests/Pub/[id number]. Performed By: [facility] [address] [place] [address] Auctioneer Art: Deshawn Werner MD, PhD CLIA Number: [id number] Blood VENOUS BLOOD / Unknown Venipuncture / Unknown 06/03/2025 1:45 PM EDT 06/03/2025 1:45 PM EDT Efe Willard MD CHEMISTRY ORDERABLES Final Res ult Performing Organization Address [facility]/ZIP Co de Phone Number [facility] [address] [place] [address] * THYROID STIMULATING HORMONE (06/03/2025 1:45 PM EDT) TSH 1.460 0.270 - 4.200 mcIU/mL 06/03/2025 7:57 PM EDT [facility] Blood VENOUS BLOOD / Unknown Venipuncture / Unknown 06/03/2025 1:45 PM EDT 06/03/2025 1:45 PM EDT Narrative [facility] - 06/03/2025 7:57 PM EDT Ingestion of alanna doses of biotin (>5 mg/day) taken within 8 hours of drawing blood sample can interfere with this immunoassay test. Efe Willard MD CHEMISTRY ORDERABLES Final Res ult Performing Organization Address City/[facility]/ZIP Co de Phone Number [facility] [address] [facility] , [place] [address] * T4, FREE (THYROXINE) (06/03/2025 1:45 PM EDT) Pathologist [facility] Free T4 1.09 0.80 - 1.80 ng/dL 06/03/2025 7:57 PM EDT [facility] Blood VENOUS BLOOD / Unknown Venipuncture / Unknown 06/03/2025 1:45 PM EDT 06/03/2025 1:45 PM EDT Narrative [facility] - 06/03/2025 7:57 PM EDT Ingestion of alanna doses of biotin (>5 mg/day) taken within 8 hours of drawing blood sample can interfere with this immunoassay test. Efe Willard MD CHEMISTRY ORDERABLES Final Res ult Performing Organization Address City/[facility]/ZIP Co de Phone Number [facility] [address] [facility] , [place] [address] * (ABNORMAL) HEMOGLOBIN A1C (06/03/2025 1:45 PM EDT) [facility] Hgb A1C 5.8(H) 4.2 - 5.6 % 06/03/2025 7:22 PM EDT [facility] Est. Avg Glucose 120 mg/dL 06/03/2025 7:22 PM EDT [facility] Blood VENOUS BLOOD / Unknown Venipuncture / Unknown 06/03/2025 1:45 PM EDT 06/03/2025 1:45 PM EDT Narrative [facility] - 06/03/2025 7:22 PM EDT REFERENCE RANGE: Normal: 4.0-5.6% Pre-diabetes: 5.7-6.4% Provisional diagnosis of diabetes: >6.4% Hgb F>10% and anything which shortens red cell survival, such as hemolytic anemia, or unstable hemoglobin variants such as HbSS, HbSC, or HbCC, will lower the HbA1c value associated with a given level of glycemic control. Efe Willard MD CHEMISTRY ORDERABLES Final Res ult [facility] [address] [facility] , [place] [address] * LUTEINIZING HORMONE (06/03/2025 1:45 PM EDT) LH 3.40 mIU/mL 06/03/2025 7:58 PM EDT [facility] Comment: Suggested Reference Ranges (mIU/mL) Females Follicular Phase 2.4 - 12.6 Ovulation Phase 14.0 - 95.6 Luteal Phase 1.0 - 11.4 Postmenopause 7.7 - 58.5 Males 1.7 - 8.6 Blood VENOUS BLOOD / Unknown Venipuncture / Unknown 06/03/2025 1:45 PM EDT 06/03/2025 1:45 PM EDT Narrative [facility] - 06/03/2025 7:58 PM EDT Ingestion of alanna doses of biotin (>5 mg/day) taken within 8 hours of drawing blood sample can interfere with this immunoassay test. us Efe Willard MD CHEMISTRY ORDERABLES Final Res ult [facility] [address] [facility] , [place] [address] * FOLLICLE STIMULATING HORMONE LEVEL (06/03/2025 1:45 PM EDT) FSH 5.22 mIU/mL 06/03/2025 7:58 PM EDT [facility] Comment: Suggested Reference Range (mIU/mL) Females Follicular Phase 3.5 - 12.5 Ovulation Phase 4.7 - 21.5 Luteal Phase 1.7 - 7.7 Postmenopause 25.8 - 134.8 Males 1.5 - 12.4 Blood VENOUS BLOOD / Unknown Venipuncture / Unknown 06/03/2025 1:45 PM EDT 06/03/2025 1:45 PM EDT Narrative [facility] - 06/03/2025 7:58 PM EDT Ingestion of alanna doses of biotin (>5 mg/day) taken within 8 hours of drawing blood sample can interfere with this immunoassay test. us Efe Willard MD CHEMISTRY ORDERABLES Final Res ult [facility] [address] [facility] [facility] , [place] [address] * (ABNORMAL) COMPREHENSIVE METABOLIC PANEL (06/03/2025 1:45 [...] 7:57 PM EDT [facility] Albumin 4.2 3.5 - 5.2 gm/dL 06/03/2025 7:57 PM EDT [facility] Total Protein 7.0 6.4 - 8.3 gm/dL 06/03/2025 7:57 PM EDT [facility] Bili Total 0.8 0.2 - 1.3 mg/dL 06/03/2025 7:57 PM EDT [facility] ALT 27 <=41 U/L 06/03/2025 7:57 PM EDT [facility] AST 23 <=40 U/L 06/03/2025 7:57 PM EDT [facility] Alk Phos 103 36 - 123 U/L 06/03/2025 7:57 PM EDT [facility] eGFR (CKD-EPIcr 2020) 114 >=60 mL/min/1.7 3 m2 06/03/2025 7:57 PM EDT [facility] Comment:Estimated GFR was ca lculated using the CKD-EPIcr (2020) equation refit without race. The equation is recommended by the National Kidney Foundation - [place] Society of Nephrology Task Force. Blood VENOUS BLOOD / Unknown Venipuncture / Unknown 06/03/2025 1:45 PM EDT 06/03/2025 1:45 PM EDT Efe Willard MD CHEMISTRY ORDERABLES Final Res ult Performing Organization Address City/[facility]/ZIP Co de Phone Number [facility] [address] [facility], [place] [address] * DIABETES EYE EXAM (01/27/2024 10:02 AM EST) Left Diabetic Retinopathy Not Present Present/Not Present SEP OFFICE Right Diabetic Retinopathy Not Present Present/Not Present SEP OFFICE [facility] Provider HEALTH MAINTENANCE Edited Re sult - Final SEP OFFICE * CRIMPING PRESS OPERATOR CYTOLOGY REQUEST (PAP ONLY) (05/21/2020 8:52 AM EDT) CASE REPORT Gynecologic Cytology Report Case: [id number] Authorizing Provider: Liz Silvestre MD Collected: 05/21/202052 Ordering Location: [facility] Received: 05/21/202052 First Screen: Francie Farley CT Specimen: LIQUID-BASED PAP - CERVICAL/ENDOCERV ICAL, Cervix, Endocervical 05/25/2020 1:26 PM EDT [facility] PAP FINAL DIAGNOSIS Negative for intraepithelial lesion or malignancy 05/25/2020 1:26 PM EDT [facility] at 1326 EDT MICROSCOPIC DESCRIPTION Microscopic examination is performed and the findings corroborate the diagnosis. 05/25/2020 1:26 PM EDT [facility] PAP SMEAR ADEQUACY Satisfactory for evaluation 05/25/2020 1:26 PM EDT [facility] ENDOCERVICAL T-ZONE Transformation zone absent. This is not unusual in a woman 05/25/2020 1:26 PM EDT [facility] EMBEDDED IMAGES 0 1:26 PM EDT [facility] PAP DISCLAIMER The Pap Smear is a screening test that aids in the detection of cervical cancer and cancer precursors. Both false positive and false negative results can occur. The test should be used at regular intervals, and positive results should be confirmed before definitive therapy. Processed using the ThinPrep Design Engineering Technician Automated cytology screening device (Absio). 05/25/2020 1:26 PM EDT [facility] Thin Prep ENDOCERVICAL STRUCTURE / Unknown 05/21/2020 8:52 AM EDT 05/21/2020 8:52 AM EDT Liz Silvestre MD CYTOLOGY ORDERABLES Elizabeth dhillon Result [facility] [address] [place] [phone] from Last 3 Months or Most Recently Relevant to Health Maintenance Insurance [place] HANSON [id number] [employer] [facility]/R Advance Directives For more information, please contact: [phone] * Full Code (Latest Code Status on File) Date Activated Date Inactivated Comments 02/09/2024 5:34 PM 02/12/2024 3:12 PM * Full Code Date Activated Date Inactivated Comments 11/30/2020 5:01 PM 12/03/2020 2:05 AM * Full Code Date Activated Date Inactivated Comments 02/06/2018 7:29 AM 02/08/2018 3:45 PM * Full Code Date Activated Date Inactivated Comments 09/15/2014 8:21 PM 09/18/2014 6:52 PM * Full Code Date Activated Date Inactivated Comments 11/05/2012 9:17 PM 11/09/2012 6:13 PM Care Teams Sociology Teacher Relationship Specialty Start Date End Date Efe Willard MD [address] [place] [phone] PCP - General Internal Medicine 02/21/19 Liz Silvestre MD [address] [facility] [place] [address] [place] [phone] [employer] And Lacquer Mixer Family Medicine 07/13/17
--- OUTSIDE RECORDS SUMMARY | 2025-08-02 15:29 | XMS_ITS | Encounter Summary ---
Author Organization [facility] Address [address] [place] [address] Care Team Providers Care Order Processing Clerk Name Role Phone Cathleen Gloria MD Primary Care Provider [phone] Reason for Visit * Reason Onset Date Comments Results 01/01/2016 Normal cora myriam scan Encounter Details Date Type Department Care Team (Late st Contact Info) Description 01/01/2016 Telephone [facility] Physicians - Primary Care, [facility] [address] [facility] [address] [place] [address] Karina Cortez, TYPEWRITER TESTER, [facility] [address] [facility] [address] [place] [address] Results (Normal anatomy scan) Social History Tobacco Use Types Packs/Day Years [...] * Telephone Encounter - Sakina Farnsworth - 01/01/2016 12:58 PM EST Left message with results. * Telephone Encounter - Karina Cortez - 01/01/2016 12:12 PM EST Please call pt - advise her that I have reviewed her OB ultrasound and it is normal . documented in this encounter Plan of Treatment Not on file documented as of this encounter Visit Diagnoses Not on filedocumented in this encounter Care Teams Order Processing Clerk Relationship Specialty Start Date End Date Cathleen Gloria MD [address] [place] [address] [place] [phone] PCP - General Internal Medicine 10/13/15 documented as of this encounter
--- OUTSIDE RECORDS SUMMARY | 2025-08-02 15:29 | XMS_ITS | Encounter Summary ---
Author Organization [place] [address] Care Team Providers Care Vice President Medical Affairs Name Role Phone Liz Silvestre MD Unavailable [phone] Efe Willard MD Primary Care Provider [phone] Reason for Visit * Reason Onset Date Comments Medication Refill Central Patient Navigator Outreach 06/07/2025 Med Refills 30 Encounter Details Date Type Department Care Team (Late st Contact Info) Description 06/07/2025 Refill SEP Barb [address] [place] [address] Efe Willard MD [address] [place] [address] Medication Refill; Central Patient Navigator Outreach (Med Refills 30/) Social History Tobacco Use Types Packs/Day Years [...] Entry Date Author No 02/12/2024 9:43 AM aDle Amador RN documented in this encounter Ordered Prescriptions Prescription Sig Dispense Quantity Refills Last Filled Start Date End Date escitalopram oxalate (LEXAPRO) 10 mg Oral TabletIndications:I rritability,Major depressive disorder, recurrent episode, mild TAKE 1 TABLET BY MOUTH DAILY 30 Tablet 06/09/2025 documented in this encounter Miscellaneous Notes * Telephone Encounter - Rita Granados - 06/09/2025 10:37 AM EDT Patient Outreach: Medication refill appointment, nikita count: Med Refill 30 Primary Care Attempt Count: 1st Care Gaps Addressed extrusion supervisor: Annual Wellness Visit Outcome: MyChart Message Sent and No answer/busy. Call back number: [phone] * Telephone Encounter - Sarah Goins CPhT - 06/09/2025 10:21 AM EDT Escitalopram Future Visit: N/A Last Assessed Visit: 12/09/24 Follow-Up Date: 06/08/25 Appointment protocol failed. One nikita supply sent to pharmacy. Routed to Patient Navigators. documented in this encounter Plan of Treatment [...] General 47.2(11/01/20 4:15 PM EST) No Christine Giordano RN HEMOGLOBIN A1C < 7.0 Result Component 5.8( 1:45 PM EDT) No Christine Giordano RN documented as of this encounter Visit Diagnoses Diagnosis Irritability Major depressive disorder, recurrent episode, mild documented in this encounter Discontinued Medications Medication Sig Discontinue Reason Start Date End Da te escitalopram oxalate (LEXAPRO) 10 mg Oral TabletIndications:Irrita bility,Major depressive disorder, recurrent episode, mild Take 1 Tablet by mouth daily. 12/09/2024 06/09/2025 documented as of this encounter Care Teams Vice President Medical Affairs Relationship Specialty Start Date End Date Efe Willard MD [address] [place] [address] [place] [address] PCP - General Internal Medicine 02/21/19 Liz Silvestre MD [address] [place] [phone] Environmental Field Professional Family Medicine 07/13/17 documented as of this encounter
--- OUTSIDE RECORDS SUMMARY | 2025-08-02 15:29 | XMS_ITS | Clinical Summary ---
Author Organization [facility] are Address [address] [place] [address] Phone Care Team Providers Care Psychiatric Nursing Aide Name Role Phone Unavailable Unavailable Conditions or Problems No information available. Medications No information available. Medications Administered No information available. Allergies, Adverse Reactions, Alerts No information available. Results No information available. Plan of Care No information available. Procedures No information available. Vital Signs No information available. Immunizations No information available. Advance Directives No information available.
[2025-08-02 15:33] VITALS: BP 144/95; PULSE 83; RESP 16; TEMP 36.6; O2SAT 98
== END 2025-08-02 15:35 | disposition home or self-care (01) ==
LOC: ER 15:27
PROVIDERS: Emergency Provider Student in an Organized Health Care Education/Training Program; PCP Pediatrics
DX: M25.572 Pain in left ankle and joints of left foot (principal)
CPT/HCPCS: 73610; 99283